=== PATIENT | male | born 1975 | race Caucasian/White ===

== ENCOUNTER 2018-10-03 17:37 | Emergency (ER) | payer OTHER ==
[2018-10-03 18:26] VITALS: BP 130/69
--- NOTE | 2018-10-03 18:45 | UC ---
Throat Pain/Nasal Bebeto HPI - HPI Summary HPI Summary: 42 yo male with one day hx of itchy ears/scratchy throat/nasal congestion and cough no fever + low energy no KIM no cp or sob - History of Current Complaint Chief Complaint: UCGeneralIllness Stated Complaint: ST Time Seen by Provider: 10/03/18 18:27 Hx Obtained From: Patient Onset/Duration: Gradual Onset, Lasting Hours Severity: Moderate Pain Intensity: 0 Pain Scale Used: 0-10 Numeric Cough: Nonproductive Associated Signs & Symptoms: Positive: Sinus Discomfort Related History: Seasonal Allergies - Epiglottits Risk Factors Epiglottis Risk Factors: Negative - Allergies/Home Medications Allergies/Adverse Reactions: Allergies Allergy/AdvReac Type Severity Reaction Status Date / Time amoxicillin Allergy Unknown Verified 10/03/18 18:19 Reaction Details clavulanic acid Allergy "Blocked Verified 10/03/18 18:19 [From Augmentin] my nose" Penicillins Allergy congested Verified 10/03/18 18:19 sinus cavities PMH/Surg Hx/FS Hx/Imm Hx Previously Healthy: Yes Endocrine History: Dyslipidemia Cardiovascular History: Hypertension Other History Of: Negative For: HIV, Hepatitis B, Hepatitis C, Anticoagulant Therapy - Surgical History Surgical History: Yes Surgery Procedure, Year, and Place: 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 tonsillectomy - Family History Known Family History: Positive: None, Hypertension Negative: Cardiac Disease - Social History Alcohol Use: Rare Alcohol Amount: quit 2 1/2 years Substance Use Type: None Smoking Status (MU): Former Smoker When Did the Patient Quit Smoking/Using Tobacco: 5 years ago - Immunization History Most Recent Influenza Vaccination: no Review of Systems All Other Systems Reviewed And Are Negative: Yes Constitutional: Positive: Fatigue Skin: Positive: Negative Eyes: Positive: Negative ENT: Positive: Sore Throat, Nasal Discharge, Sinus Congestion, Other - itchy ears Respiratory: Positive: Cough Cardiovascular: Positive: Negative Gastrointestinal: Positive: Negative Genitourinary: Positive: Negative Motor: Positive: Negative Neurovascular: Positive: Negative Musculoskeletal: Positive: Negative Neurological: Positive: Negative Psychological: Positive: Negative Physical Exam Triage Information Reviewed: Yes Appearance: Well-Appearing, No Pain Distress, Well-Nourished Vital Signs: Initial Vital Signs Temp 98.1 F 10/03/18 18:21 Pulse 96 10/03/18 18:21 Resp 18 10/03/18 18:21 BP 130/69 10/03/18 18:21 Pulse Ox 96 10/03/18 18:21 Vital Signs Reviewed: Yes Eyes: Positive: Conjunctiva Clear ENT: Positive: Hearing grossly normal, Pharynx normal, Nasal congestion, TMs normal, Uvula midline. Negative: Nasal drainage, Tonsillar swelling, Tonsillar exudate, Trismus, Muffled voice, Hoarse voice, Dental tenderness, Sinus tenderness Neck: Positive: Supple, Nontender, No Lymphadenopathy Respiratory: Positive: Lungs clear, Normal breath sounds, No respiratory distress, No accessory muscle use Cardiovascular: Positive: RRR, No Murmur Musculoskeletal: Positive: ROM Intact, No Edema Neurological: Positive: Alert Psychological Exam: Normal Skin Exam: Normal Throat Pain/Nasal Course/Dx - Differential Dx/Diagnosis Provider Diagnosis: Seasonal allergic rhinitis Discharge - Sign-Out/Discharge Documenting (check all that apply): Patient Departure All imaging exams completed and their final reports reviewed: No Studies - Discharge Plan Condition: Stable Disposition: HOME Prescriptions: Benzonatate CAP* [Tessalon CAP*] 100 - 200 mg PO TID PRN #28 cap PRN Reason: Cough Fexofenadine (NF) [Camelia (NF)] 60 mg PO QAM PRN #14 tab PRN Reason: Allergy Symptoms Fluticasone NASAL SPRAY 50MCG* [Flonase NASAL SPRAY 50MCG*] 2 spray BOTH NARES BID #1 btl Patient Education Materials: Allergic Rhinitis (ED) Referrals: Chiara Bazan MD [Primary Care Provider] - 3 Days (if not better) Additional Instructions: benadryl 25 mg take two tablets at bedtime recheck for new or worsening symptoms - Billing Disposition and Condition Condition: STABLE Disposition: Home
== END 2018-10-03 18:52 | disposition home or self-care (01) ==
LOC: UCCORT 17:37
DX: J30.2 Other seasonal allergic rhinitis (principal); I10 Essential (primary) hypertension; H93.8X3 Other specified disorders of ear, bilateral; R53.83 Other fatigue; Z87.891 Personal history of nicotine dependence; Z88.0 Allergy status to penicillin
CPT/HCPCS: 99212; G0463

== ENCOUNTER 2018-10-05 14:14 | Emergency (ER) | payer OTHER ==
[2018-10-05 14:54] VITALS: BP 131/70
--- NOTE | 2018-10-05 15:38 | UC ---
Respiratory Complaint HPI - HPI Summary HPI Summary: 42-year-old male presents for a persistent cough. He was initially seen at this facility on 10/03/2018 with one-day history of symptoms and diagnosed with an allergic rhinitis. States he has been taking the prescribed antihistamine, using the Flonase nasal spray, and taking the Tessalon Perles with no improvement in symptoms. States for the past 2 nights he is having shaking chills but no documented fever. Symptoms are associated with nasal congestion, postnasal drip, a mild sore throat. Denies ear pain, sinus pressure, dysphagia , chest pain, abdominal pain, nausea, or vomiting. - History of Current Complaint Chief Complaint: UCRespiratory Stated Complaint: CHEST CONGESTION Time Seen by Provider: 10/05/18 14:34 Hx Obtained From: Patient Pain Intensity: 0 - Allergies/Home Medications Allergies/Adverse Reactions: Allergies Allergy/AdvReac Type Severity Reaction Status Date / Time Penicillins Allergy Hives Verified 10/05/18 14:55 amoxicillin AdvReac Unknown Verified 10/05/18 14:55 Reaction Details clavulanic acid AdvReac "Blocked Verified 10/05/18 14:55 [From Augmentin] my nose" Home Medications: Home Medications diphenhydrAMINE HCl [Benadryl Allergy] 25 mg PO BEDTIME 10/05/18 [History Confirmed 10/05/18] PMH/Surg Hx/FS Hx/Imm Hx Previously Healthy: Yes Cardiovascular History: Hypertension GI/ History: Gastroesophageal Reflux Other History Of: Negative For: HIV, Hepatitis B, Hepatitis C, Anticoagulant Therapy - Surgical History Surgical History: Yes Surgery Procedure, Year, and Place: 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 tonsillectomy - Family History Known Family History: Positive: None, Hypertension Negative: Cardiac Disease - Social History Occupation: Employed Full-time Lives: With Family Alcohol Use: Rare Alcohol Amount: quit 2 1/2 years Substance Use Type: None Smoking Status (MU): Former Smoker Type: Cigarettes Amount Used/How Often: 1/2 ppd Length of Time of Smoking/Using Tobacco: 20+ years When Did the Patient Quit Smoking/Using Tobacco: 2013 - Immunization History Most Recent Influenza Vaccination: no Review of Systems All Other Systems Reviewed And Are Negative: Yes Constitutional: Positive: Chills, Fatigue. Negative: Fever Skin: Negative: Rash Eyes: Negative: Drainage, Eye Redness ENT: Positive: Sore Throat, Nasal Discharge, Sinus Congestion. Negative: Ear Ache, Sinus Pain/Tenderness Respiratory: Positive: Cough. Negative: Shortness Of Breath Cardiovascular: Negative: Palpitations, Chest Pain Gastrointestinal: Negative: Abdominal Pain, Vomiting, Diarrhea, Nausea Genitourinary: Positive: Negative Musculoskeletal: Positive: Negative Neurological: Positive: Negative Is Patient Immunocompromised?: No Physical Exam - Summary Physical Exam Summary: GENERAL APPEARANCE: Well developed, well nourished, alert and cooperative, and appears to be in no acute distress. EYES: Conjunctiva clear. No drainage. EARS: External auditory canals and tympanic membranes clear, hearing grossly intact. NOSE: Mild-moderate nasal congestion. THROAT: Mild pharyngeal erythema. Post-nasal drip. No tonsilar inflammation, swelling, exudate, or lesions. Uvula midline. NECK: Neck supple, non-tender without lymphadenopathy. CARDIAC: Normal S1 and S2. No S3, S4 or murmurs. Rhythm is regular. There is no peripheral edema, cyanosis or pallor. Extremities are warm and well perfused. Capillary refill is less than 2 seconds. Peripheral pulses intact. LUNGS: Clear to auscultation without rales, rhonchi, wheezing or diminished breath sounds. Dry, non-productive cough. ABDOMEN: Positive bowel sounds. Soft, nondistended, nontender. No guarding or rebound. No masses or hepatosplenomegally. MUSKULOSKELETAL: ROM intact to all extremities. No joint erythema or tenderness. Normal muscular development. Normal gait. SKIN: Skin normal color, texture and turgor with no lesions or eruptions. Triage Information Reviewed: Yes Vital Signs: Initial Vital Signs Temp 97.4 F 10/05/18 14:46 Pulse 103 10/05/18 14:46 Resp 16 10/05/18 14:46 BP 131/70 10/05/18 14:46 Pulse Ox 98 10/05/18 14:46 Vital Signs Reviewed: Yes Respiratory Course/Dx - Course Course Of Treatment: 42-year-old male presents for a persistent cough. He was initially seen at this facility on 10/03/2018 with one-day history of symptoms and diagnosed with an allergic rhinitis. States he has been taking the prescribed antihistamine, using the Flonase nasal spray, and taking the Tessalon Perles with no improvement in symptoms. States for the past 2 nights he is having shaking chills but no documented fever. Symptoms are associated with nasal congestion, postnasal drip, a mild sore throat. Denies ear pain, sinus pressure, dysphagia , chest pain, abdominal pain, nausea, or vomiting. Afebrile. Mildly tachycardic otherwise vital signs stable. Exam reveals mild to moderate nasal congestion, mild pharyngeal erythema without tonsillar swelling or exudate, postnasal drip, no cervical lymphadenopathy, clear bilateral breath sounds, and a dry nonproductive cough. Discussed with the patient that with the history of chills and the fact that his congestion is not responding to the antihistamines his symptoms are likely from a viral upper respiratory infection. Patient expressed concern that his symptoms are not resolving and that he needed to be get back to work. I reviewed the risks and benefits of treating with an antibiotic especially with the likelihood that this is a viral syndrome however he is electing to start at this time. He has been prescribed a course of azithromycin. I'm also recommending continued symptomatic treatment although have suggested that he stop the antihistamine and try an [id number] decongestant to see if this is more effective for controlling his congestion. He is to follow-up with his primary care provider in 3-5 days if symptoms persist. Anticipatory guidance and warning symptoms were reviewed with the patient. Verbalizes understanding and agrees with plan of care. - Differential Dx/Diagnosis Differential Diagnosis/HQI/PQRI: Bronchitis, Lower Resp Infection, Other - URI Provider Diagnosis: URI (upper respiratory infection) Discharge - Sign-Out/Discharge Documenting (check all that apply): Patient Departure All imaging exams completed and their final reports reviewed: No Studies - Discharge Plan Condition: Stable Disposition: HOME Prescriptions: Azithromyxin OSWALDO (NF) [Z-Oswaldo (Zithromax) 250 mg tabs #6] 2 tab PO .TODAY, THEN 1 DAILY #6 tab Patient Education Materials: Upper Respiratory Infection (ED) Referrals: Chiara Bazan MD [Primary Care Provider] - 3 Days Additional Instructions: Your history and exam are consistent with an upper respiratory infection. Upper respiratory infections are usually caused by a virus but I will send in a prescription for an antibiotic for you to take as you requested. Start azithromycin 2 tabs on the first day then 1 tab a day for next 4 days. Continue to use the fluticasone (Flonase) nasal spray 2 sprays each nostril once daily. I would recommend stopping the antihistamines for now and try using an over the counter decongestant such as Sudafed to help with the congestion and post-- nasal drip. Take over the counter acetaminophen (Tylenol) or ibuprofen (Advil, Motrin) according to directions as needed for pain or fever. Follow up with your primary care provider in 3-5 days if symptoms persist. Seek immediate medical attention in the emergency room if you have fever greater than 100.5 F despite taking acetaminophen or ibuprofen, have chest pain , difficulty breathing, are unable to swallow, or have any worsening of symptoms - Billing Disposition and Condition Condition: STABLE Disposition: Home
== END 2018-10-05 15:44 | disposition home or self-care (01) ==
LOC: UCCORT 14:14
DX: J06.9 Acute upper respiratory infection, unspecified (principal); J30.9 Allergic rhinitis, unspecified; I10 Essential (primary) hypertension; Z87.891 Personal history of nicotine dependence; Z88.0 Allergy status to penicillin
CPT/HCPCS: 99212; G0463

== ENCOUNTER 2018-12-08 12:33 | Emergency (ER) | payer OTHER ==
[2018-12-08 12:56] VITALS: BP 140/75
--- NOTE | 2018-12-08 13:09 | UC ---
Back Pain HPI - HPI Summary HPI Summary: Pt presents with progressively worsening low back pain. Pt has hx of low back pain and injury. Pt states that he had physical therapy treatments that improved his back "and allowed him to return to work". He reports that over the last few days, his low back pain has become worse when he stands for long periods of pain. He states that the pain imporves with sitting. Pt reprots the pain rdiates down anterior thighs and lateral thighs. Denies recent injury or saddle parasthesia. denies loss bowel or bladder control - History of Current Complaint Chief Complaint: UCBackPain Stated Complaint: BACK PAIN Time Seen by Provider: 12/08/18 12:52 Hx Obtained From: Patient Onset/Duration: Gradual Onset, Lasting Days, Worse Since - onset Timing: Constant Severity Initially: Mild Severity Currently: Moderate Pain Intensity: 4 Back Pain: Is Diffuse, Radiates To Character: Dull, Aching, Burning Aggravating Factor(s): Other - standing Alleviating Factor(s): Rest, Position Associated Signs And Symptoms: Positive: Negative Related History: Previous Back Injury - Risk Factors AAA Risk Factors: Negative TAD Risk Factors: Negative Cauda Equina Risk Factors: Negative Epidural Abscess Risk Factors: Negative - Allergies/Home Medications Allergies/Adverse Reactions: Allergies Allergy/AdvReac Type Severity Reaction Status Date / Time Penicillins Allergy Hives Verified 12/08/18 12:57 amoxicillin AdvReac Unknown Verified 12/08/18 12:57 Reaction Details clavulanic acid AdvReac "Blocked Verified 12/08/18 12:57 [From Augmentin] my nose" Home Medications: Home Medications Hydrocodone/Acetaminophen [Vicodin 5-300 mg Tablet] 1 tab PO ONCE 12/08/18 [ History Confirmed 12/08/18] Naproxen Sodium [Aleve] 1 tab PO ONCE 12/08/18 [History Confirmed 12/08/18] PMH/Surg Hx/FS Hx/Imm Hx Previously Healthy: Yes Other History Of: Negative For: HIV, Hepatitis B, Hepatitis C, Anticoagulant Therapy - Surgical History Surgical History: Yes Surgery Procedure, Year, and Place: 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 tonsillectomy - Family History Known Family History: Positive: None, Hypertension Negative: Cardiac Disease - Social History Occupation: Employed Full-time Lives: With Family Alcohol Use: Rare Alcohol Amount: quit 2 1/2 years Substance Use Type: None Smoking Status (MU): Former Smoker Type: Cigarettes Amount Used/How Often: 1/2 ppd Length of Time of Smoking/Using Tobacco: 20+ years Have You Smoked in the Last Year: No When Did the Patient Quit Smoking/Using Tobacco: 2013 - Immunization History Most Recent Influenza Vaccination: no Review of Systems All Other Systems Reviewed And Are Negative: Yes Constitutional: Positive: Negative Skin: Positive: Negative Eyes: Positive: Negative ENT: Positive: Negative Respiratory: Positive: Negative Cardiovascular: Positive: Negative Gastrointestinal: Positive: Negative Genitourinary: Positive: Negative Motor: Positive: Other - pain bilateral lower extremities Neurovascular: Positive: Negative Musculoskeletal: Positive: Myalgia - bialteral lower extremities, thighs Neurological: Positive: Weakness Psychological: Positive: Negative Is Patient Immunocompromised?: No Physical Exam Triage Information Reviewed: Yes Appearance: Pain Distress Vital Signs: Initial Vital Signs Temp 98.2 F 12/08/18 12:50 Pulse 86 12/08/18 12:50 Resp 14 12/08/18 12:50 BP 140/75 12/08/18 12:50 Pulse Ox 96 12/08/18 12:50 Vital Signs Reviewed: Yes Eye Exam: Normal ENT Exam: Normal ENT: Positive: Hearing grossly normal Dental Exam: Normal Neck exam: Normal Respiratory: Positive: No respiratory distress Musculoskeletal: Positive: Strength Intact Neurological Exam: Normal Neurological: Positive: Muscle Tone Normal - hyperreflex left knee Psychological Exam: Normal Skin Exam: Normal Back Pain Course/Dx - Differential Dx/Diagnosis Differential Diagnosis/HQI/PQRI: Cauda Equina Syndrome, Herniated Disc Provider Diagnosis: Low back pain radiating down leg Discharge - Sign-Out/Discharge Documenting (check all that apply): Patient Departure All imaging exams completed and their final reports reviewed: No Studies - 6370 - Discharge Plan Condition: Stable Disposition: HOME Patient Education Materials: Chronic Back Pain (DC), Lower Back Exercises (ED) Forms: *Work Release Referrals: Xu Banks MD [Medical Doctor] - As Soon As Possible Chiara Bazan MD [Primary Care Provider] - If Needed Tony Davis MD [Medical Doctor] - As Soon As Possible Additional Instructions: Please follow up with a back pain specialist as soon as possible. - Billing Disposition and Condition Condition: STABLE Disposition: Home
== END 2018-12-08 13:22 | disposition home or self-care (01) ==
LOC: UCCORT 12:33
DX: M54.5 Low back pain (principal); Z87.891 Personal history of nicotine dependence
CPT/HCPCS: 99211; G0463

== ENCOUNTER 2019-05-06 19:03 | Emergency (ER) | payer OTHER ==
[2019-05-06 19:19] VITALS: BP 122/76
[2019-05-06 19:52] LABS: Influenza A Molecular NEGATIVE (Negative); Influenza B Molecular NEGATIVE (Negative)
--- NOTE | 2019-05-06 20:14 | UC ---
FLU HPI - HPI Summary HPI Summary: 43 yo with one day history of chills, sweats, malaise and mild headache. No vomiting or diarrhea. Appetite decreased. No abdominal pain. - History of Current Complaint Chief Complaint: UCGeneralIllness Stated Complaint: COLD LIKE SYMPTOMS Time Seen by Provider: 05/06/19 20:06 Hx Obtained From: Patient Onset/Duration: Sudden Onset, Lasting Days - 1 Severity Currently: Moderate Severity Initially: Mild Pain Intensity: 0 Associated Signs & Symptoms: Positive: Myalgia, Headache. Negative: Cough, Sore Throat - Risk Factors Influenza Risk Factors: Negative - Allergy/Home Medications Allergies/Adverse Reactions: Allergies Allergy/AdvReac Type Severity Reaction Status Date / Time Penicillins Allergy Hives Verified 05/06/19 19:19 amoxicillin AdvReac Unknown Verified 05/06/19 19:19 Reaction Details clavulanic acid AdvReac "Blocked Verified 05/06/19 19:19 [From Augmentin] my nose" Home Medications: Home Medications Fluticasone NASAL SPRAY 50MCG* [Flonase NASAL SPRAY 50MCG*] 2 spray BOTH NARES BID PRN 05/06/19 [History Confirmed 05/06/19] PMH/Surg Hx/FS Hx/Imm Hx Cardiovascular History: Hypertension GI/ History: Gastroesophageal Reflux Other History Of: Negative For: HIV, Hepatitis B, Hepatitis C, Anticoagulant Therapy - Surgical History Surgical History: Yes Surgery Procedure, Year, and Place: 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 tonsillectomy - Family History Known Family History: Positive: Hypertension, Diabetes - mother Negative: Cardiac Disease - Social History Occupation: Unemployed Alcohol Use: Rare Alcohol Amount: quit 2 1/2 years Substance Use Type: None Smoking Status (MU): Former Smoker Type: Cigarettes Amount Used/How Often: 1/2 ppd Length of Time of Smoking/Using Tobacco: 20+ years Have You Smoked in the Last Year: No When Did the Patient Quit Smoking/Using Tobacco: 2013 - Immunization History Most Recent Influenza Vaccination: no Review of Systems All Other Systems Reviewed And Are Negative: Yes Constitutional: Positive: Fatigue, Other - recent 30 pound weight loss with diet change, done to improve health Skin: Positive: Negative Eyes: Positive: Negative ENT: Positive: Negative Respiratory: Positive: Negative Cardiovascular: Positive: Negative Gastrointestinal: Positive: Nausea. Negative: Abdominal Pain, Vomiting, Diarrhea Genitourinary: Positive: Negative Motor: Positive: Negative Neurovascular: Positive: Negative Musculoskeletal: Positive: Myalgia, Other: - off work due to disc herniation Neurological: Positive: Headache Psychological: Positive: Negative Is Patient Immunocompromised?: No Physical Exam Triage Information Reviewed: Yes Appearance: No Pain Distress, Ill-Appearing - looks mildly unwell Vital Signs: Initial Vital Signs Temp 98.4 F 05/06/19 19:14 Pulse 82 05/06/19 19:14 Resp 18 05/06/19 19:14 BP 122/76 05/06/19 19:14 Pulse Ox 100 05/06/19 19:14 Eye Exam: Other - LALITA, no photophobia Eyes: Positive: Conjunctiva Clear ENT: Positive: Pharynx normal, TMs normal Neck: Positive: Supple, Nontender, No Lymphadenopathy Respiratory: Positive: Lungs clear, Normal breath sounds, No respiratory distress Cardiovascular: Positive: RRR, No Murmur, Pulses Normal Abdomen Description: Positive: Nontender, No Organomegaly, Soft Musculoskeletal Exam: Normal Neurological Exam: Normal Psychological Exam: Normal Skin Exam: Normal Diagnostics - Laboratory Lab Results: Rapid flu negative Flu Course/Dx - Course Course Of Treatment: Continue symptomatic treatment of viral illness. - Differential Dx/Diagnosis Differential Diagnosis/HQI/PQRI: Influenza, Upper Respiratory Infection, Other - viral syndrome Provider Diagnosis: Viral syndrome Discharge ED - Sign-Out/Discharge Documenting (check all that apply): Patient Departure All imaging exams completed and their final reports reviewed: No Studies - Discharge Plan Condition: Stable Disposition: HOME Patient Education Materials: Viral Syndrome (ED) Referrals: Chiara Bazan MD [Primary Care Provider] - Additional Instructions: Continue high intake of fluids and use acetaminophen for aches and headache. Follow up if you have increased difficulty breathing, develop increasing fever, or have decreased urine output. - Billing Disposition and Condition Condition: STABLE Disposition: Home
== END 2019-05-06 20:27 | disposition home or self-care (01) ==
LOC: UCCORT 19:03
DX: B34.9 Viral infection, unspecified (principal); R68.83 Chills (without fever); R53.81 Other malaise; R51 Headache; R63.8 Other symptoms and signs concerning food and fluid intake; R53.83 Other fatigue; R11.0 Nausea; M79.10 Myalgia, unspecified site; I10 Essential (primary) hypertension; Z87.891 Personal history of nicotine dependence; Z88.0 Allergy status to penicillin
CPT/HCPCS: 99211; G0463

== ENCOUNTER 2019-07-08 20:01 | Emergency (ER) | payer OTHER ==
[2019-07-08 20:16] VITALS: BP 141/76
--- NOTE | 2019-07-08 20:47 | UC ---
Throat Pain/Nasal [place] HPI - HPI Summary HPI Summary: 43yo male presenting with "weird feeling in the front of his head" x 2 days. Patient states it "feels almost like a headache." States he thinks it is his allergies but admits to being a "hypochondriac." Does note nasal congestion and sinus pressure "under his eyes." States it felt worse while working out at the gym today. Denies sore throat. Denies cough. Denies fever and chills. Took "an allergy pill and aleve yesterday but not sure if it helped." Notes prior episode similar to this. - History of Current Complaint Chief Complaint: UCHeadache Stated Complaint: SINUS CONCERN Hx Obtained From: Patient Pain Intensity: 0 Related History: Seasonal Allergies - Allergies/Home Medications Allergies/Adverse Reactions: Allergies Allergy/AdvReac Type Severity Reaction Status Date / Time Penicillins Allergy Hives Verified 07/08/19 20:16 amoxicillin AdvReac Unknown Verified 07/08/19 20:16 Reaction Details clavulanic acid AdvReac "Blocked Verified 07/08/19 20:16 [From Augmentin] my nose" Home Medications: Home Medications Esomeprazole(NF) [Nexium(NF)] 40 mg PO DAILY 04/30/12 [History Confirmed ] Lisinopril TAB* [Prinivil TAB 10 MG*] 10 mg PO DAILY 04/30/12 [History Confirmed 07/08/19] Cetirizine* [ZyrTEC 10 MG TAB*] 10 mg PO DAILY 07/08/19 [History Confirmed 07/08] Triamcinolone NASAL SPRAY* [Nasacort AQ Nasal [place]*] 2 spray INTRANASAL DAILY PRN #1 bottle 07/08/19 [Rx] PMH/Surg Hx/FS Hx/Imm Hx Cardiovascular History: Hypertension GI/ History: Gastroesophageal Reflux Other History Of: Negative For: HIV, Hepatitis B, Hepatitis C, Anticoagulant Therapy - Surgical History Surgical History: Yes Surgery Procedure, Year, and Place: 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 tonsillectomy - Family History Known Family History: Positive: None, Hypertension, Diabetes - mother Negative: Cardiac Disease - Social History Alcohol Use: None Alcohol Amount: quit 2 1/2 years Substance Use Type: None Smoking Status (MU): Former Smoker Type: Cigarettes Amount Used/How Often: 1/2 ppd Length of Time of Smoking/Using Tobacco: 20+ years Have You Smoked in the Last Year: No When Did the Patient Quit Smoking/Using Tobacco: 2013 - Immunization History Most Recent Influenza Vaccination: no Review of Systems All Other Systems Reviewed And Are Negative: Yes Constitutional: Positive: Negative ENT: Positive: Nasal Discharge, Sinus Congestion, Sinus Pain/Tenderness. Negative: Sore Throat Respiratory: Positive: Negative Cardiovascular: Positive: Negative Gastrointestinal: Positive: Negative Musculoskeletal: Positive: Negative Neurological/Mental Status: Positive: Headache Physical Exam Triage Information Reviewed: Yes Appearance: Well-Appearing, No Pain Distress, Well-Nourished Vital Signs: Initial Vital Signs Temp 97.7 F 07/08/19 20:11 Pulse 81 07/08/19 20:11 Resp 15 07/08/19 20:11 BP 141/76 07/08/19 20:11 Pulse Ox 98 07/08/19 20:11 Vital Signs Reviewed: Yes Eyes: Positive: Conjunctiva Clear ENT: Positive: Hearing grossly normal, Pharynx normal, Nasal congestion, Nasal drainage - PND, TMs normal, Sinus tenderness - frontal, Uvula midline. Negative : Tonsillar swelling, Tonsillar exudate Neck: Positive: Supple Respiratory Exam: Normal Respiratory: Positive: Lungs clear, Normal breath sounds, No respiratory distress Cardiovascular Exam: Normal Cardiovascular: Positive: RRR Neurological: Positive: Alert Psychological: Positive: Age Appropriate Behavior Skin Exam: Normal Throat Pain/Nasal Course/Dx - Course Course Of Treatment: Discussed viral uri vs allergic rhinitis. Instructed to continue with allergy medication and add decongestant such as sudafed, which he states he has at home. Patient requested nasacort "because that helped the last time this happened." I provided patient with prescription for nasacort and instructed to follow up with pcp if symptoms do not improve within 7-10 days. Patient voiced understanding and agreed with treatment plan. - Differential Dx/Diagnosis Differential Diagnosis/HQI/PQRI: Sinusitis, URI Provider Diagnosis: Viral URI, Sinus headache Discharge ED - Sign-Out/Discharge Documenting (check all that apply): Patient Departure All imaging exams completed and their final reports reviewed: No Studies - Discharge Plan Condition: Stable Disposition: HOME Prescriptions: Triamcinolone NASAL SPRAY* [Nasacort AQ Nasal [place]*] 2 spray INTRANASAL DAILY PRN #1 bottle PRN Reason: Congestion Patient Education Materials: Upper Respiratory Infection (ED) Referrals: Chiara Bazan MD [Primary Care Provider] - If Needed Additional Instructions: Use the nasacort as prescribed. You may continue with your allergy medication and add sudafed for symptom relief. You may also continue to take aleve as directed. Increase your fluid intake. Follow up with your primary care provider or the [facility] listed below if symptoms do not improve within 10 days. - Billing Disposition and Condition Condition: STABLE Disposition: Home
== END 2019-07-08 21:15 | disposition home or self-care (01) ==
LOC: UCCORT 20:01
DX: J06.9 Acute upper respiratory infection, unspecified (principal); R51 Headache; I10 Essential (primary) hypertension; K21.9 Gastro-esophageal reflux disease without esophagitis; Z79.899 Other long term (current) drug therapy; Z88.0 Allergy status to penicillin; Z87.891 Personal history of nicotine dependence
CPT/HCPCS: 99212; G0463